=== PATIENT | female | born 1980 | race Caucasian/White ===

== ENCOUNTER 2016-05-12 08:33 | Day surgery (SDC) | payer OTHER ==
[2016-05-11 17:24] VITALS: BMI 33.3
[2016-05-12] VITALS (13 sets, daily range): BP systolic 90–121; BP diastolic 47–82; PULSE 68–99; RESP 14–25; Ht 165.1 cm; Wt 91.2 kg
[~2016-05-12] VITALS: Ht 165.1 cm; Wt 91.2 kg
[~2016-05-12 08:33] MED LIST: CEFAZOLIN 2 GM/50 ML (PMX) 50 ML IVPB SCH; CHOL100062 PO; OMEP40CA6 PO; PYRI25TA13 PO; SOD CHLORIDE 0.9% 1,000 ML IV SCH
[2016-05-12] MEDS ORDERED: MIDAZOLAM 1 MG/ML 2 ML INJ ONE (09:27)
[2016-05-12] MEDS ORDERED: CEFAZOLIN 1 GM INJ ONE (09:27)
[2016-05-12] MEDS ORDERED: FENTAnyl 50 MCG/ML VIAL ONE ×2 (09:27)
[2016-05-12] MEDS ORDERED: ROCURONIUM 50 MG INJ ONE (09:27)
[2016-05-12] MEDS ORDERED: PROPOFOL 20 ML ONE (09:27)
[2016-05-12 10:07] LABS: BASOPHILS % 0.4 % (0.0-2.0); EOSINOPHILS # 0.3 10^3/ul (0.0-0.5); EOSINOPHILS % 3.2 % (0.0-7.0); HEMATOCRIT 35.2 % (37.0-47.0); HEMOGLOBIN 12.4 g/dl (12.0-16.0); LYMPHOCYTES # 1.8 10^3/ul (0.8-2.9); LYMPHOCYTES % 18.7 % (15.0-51.0); MEAN CORPUSCULAR HEMOGLOBIN 29.4 pg (29.0-33.0); MEAN CORPUSCULAR HGB CONC 35.1 g/dl (32.0-37.0); MEAN CORPUSCULAR VOLUME 83.7 fl (82.0-101.0); MEAN PLATELET VOLUME 7.7 fl (7.4-10.4); MONOCYTE # 0.7 10^3/ul (0.3-0.9); MONOCYTES % 7.6 % (0.0-11.0); NEUTROPHIL # 6.7 10^3/ul (1.6-7.5); NEUTROPHILS % 70.1 % (39.0-77.0); PLATELET COUNT 367 10^3/UL (140-440); RED CELL DISTRIBUTION WIDTH 13.3 % (11.5-14.5); UNCORRECTED WBC 9.6 10^3/ul (4.8-10.8); WHITE BLOOD COUNT 9.6 10^3/ul (4.8-10.8)
[2016-05-12 10:12] LABS: CONDITION 1
[2016-05-12 10:25] LABS: CALCIUM 9.2 mg/dl (8.4-10.2); CREATININE 0.62 mg/dl (0.44-1.00)
[2016-05-12 10:29] LABS: PROTIME 13.2 Sec (12.2-14.2)
[2016-05-12 10:30] LABS: PARTIAL THROMBOPLASTIN TIME 31.5 Sec (25.0-35.0)
[2016-05-12] MEDS ORDERED: BUPIVACAINE 0.25% (MPF) 30 ML INJ ONE (11:47)
[2016-05-12] MEDS ORDERED: METOCLOPRAMIDE 10 MG INJ ONE (12:22)
[2016-05-12] MEDS ORDERED: KETOROLAC 30 MG INJ ONE (12:22)
[2016-05-12] MEDS ORDERED: ONDANSETRON 4 MG INJ ONE (12:22)
[2016-05-12] MEDS ORDERED: DEXAMETHASONE 4 MG/ML 1 ML INJ ONE (12:22)
[2016-05-12] MEDS ORDERED: NEOSTIGMINE 3 MG/3 ML SYRINGE ONE (12:39)
[2016-05-12] MEDS ORDERED: GLYCOPYRROLATE 1 MG INJ ONE (12:39)
[2016-05-12] MEDS ORDERED: DIPHENHYDRAMINE 50 MG INJ IV PRN (13:00)
[2016-05-12] MEDS ORDERED: ONDANSETRON 4 MG INJ IV PRN (13:00)
[2016-05-12] MEDS ORDERED: hydrALAzine 20 MG INJ IV PRN (13:00)
[2016-05-12] MEDS ORDERED: HYDROmorphONE (0.2 MG/ML) 10ML SYG IV PRN ×2 (13:00)
[2016-05-12] MEDS ORDERED: MEPERIDINE 25 MG INJ IV PRN (13:00)
[2016-05-12] MEDS ORDERED: morphine (1 MG/ML) 10ML SYRINGE IV PRN ×3 (13:00)
[2016-05-12] MEDS ORDERED: EPHEDrine SULFATE 50 MG/5 ML SYG IV PRN (13:00)
[2016-05-12] MEDS ORDERED: HYDROCODONE/APAP (5/325) TAB PO ONE (13:00)
[2016-05-12] MEDS: HYDROmorphONE (0.2 MG/ML) 10ML SYG IV PRN ×2 (13:20→13:29)
--- NOTE | 2016-05-12 15:12 | OPR ---
DATE OF OPERATION: 05/12/2016 INDICATION: This is a 35-year-old female with symptomatic gallstones. She requests surgical excisi on of her gallbladder. Risks, alternatives, benefits, and personnel were discussed with the patient . Patient expressed understanding and consents to the operation. PREOPERATIVE DIAGNOSIS: Symptomatic gallstones. POSTOPERATIVE DIAGNOSIS: Symptomatic gallstones. OPERATION: Laparoscopic cholecystectomy. SURGEON: Jose Lo MD SPECIMEN: Gallbladder. COMPLICATIONS: None. ANESTHESIA: General. DESCRIPTION OF PROCEDURE: The patient was taken to the OR and prepped and draped in usual sterile f ashion. Surgical timeout was performed. IV antibiotics were given. Infraumbilical incision was ma de transversely with a 15 blade. Dissection cautery was carried down to the fascia. Balloon Liz trocar was introduced after division of the fascia. Pneumoperitoneum was established. Midepigastr ic 12 mm optical trocar in right upper quadrant and right upper flank [address] d under direct visualization. Upon initial inspection, there were some adhesions to the gallbladder which were taken down bluntly. The cystic duct was identified. The critical view was established. The cystic duct was divided using a 35 mm [place] vascular load stapler. The cystic artery was di vided using 3 clips proximal, 1 clip distal. The gallbladder was taken off the gallbladder bed. Th ere was good hemostasis. Gallbladder was retrieved using EndoCatch bag. Ports were removed under d irect visualization. [id number] 0 Vicryl suture was used to close the infraumbilical port site. The skin was closed using skin brett. Local anesthesia was injected. Dry dressings were applie d. Dictated By: JOSE PEREZ/CARLOS Conf#: [id number] DID#: [id number]
== END 2016-05-12 14:40 | disposition home or self-care (01) ==
LOC: SDS 08:33
PROVIDERS: ATTEND Surgery
DX: K80.10 Calculus of gallbladder with chronic cholecystitis without obstruction (principal)
CPT/HCPCS: 47562; 80048; 84703; 85025; 85610; 85730; 88304; J0690; J1100; J1170; J1885; J2175; J2250; J2405; J2710; J2765; J3010; Z7512; Z7610